=== PATIENT | female | born 1940 | race Caucasian/White ===

== ENCOUNTER 2024-05-27 12:37 | Inpatient (IN) ==
[2024-05-27] MEDS: Cefepime 1 GM IV - ED ONCE IV ONE (14:16)
[2024-05-27 14:38] LABS: ABS Basophils 0.1 10^3/uL (0.0-0.1); ABS Lymphocytes 0.7 10^3/uL (1.0-4.8); ABS Monocytes 0.9 10^3/uL (0.0-0.9); ABS Neutrophils 7.8 10^3/uL (1.5-7.6); Eosinophil % 0.4 %; Hematocrit 38.7 % (35-45); Hemoglobin 12.7 g/dL (11.5-14.3); Mean Corpuscular Hemoglobin 28.1 pg (27-33); Mean Corpuscular Hgb Conc 32.9 g/dL (31-36); Mean Corpuscular Volume 85.3 fL (80-97); Mean Platelet Volume 8.3 fL (7.5-11.2); Platelet Count 234 10^3/uL (150-450); Red Blood Count 4.54 10^6/uL (3.63-4.92); White Blood Count 9.5 10^3/uL (3.8-11.8)
[2024-05-27 14:54] LABS: Albumin 3.9 g/dL (3.2-5.2); Albumin/Globulin Ratio 1.8 (1-3); C Reactive Protein 84.55 mg/L (<8.01); Calcium 9.2 mg/dL (8.6-10.3); Creatinine, Serum 0.68 mg/dL (0.51-0.95); Globulin 2.2 g/dL (2-4); Potassium 3.5 mmol/L (3.5-5.0); Total Bilirubin 0.9 mg/dL (0.2-1.0); Total Protein 6.1 g/dL (6.4-8.9); eGFR CKD-EPI 86.4 (>60)
[2024-05-27] MEDS: Iohexol 300 (CONTRAST) 10 ML SDV IV ONE (15:50)
[2024-05-27 19:37] LABS: Hepatitis B Surface Antigen Nonreactive (Nonreactive)
[2024-05-27 19:42] LABS: Hepatitis B Core IgM Nonreactive (Nonreactive)
[2024-05-27 19:54] LABS: Hepatitis B Surface Ab Not Immune (Immune); Hepatitis C Antibody Negative (Negative)
[2024-05-27] MEDS: Vancomycin 1,500 MG in NS 0.9% 250 ml 250 ML IVPB ONE (20:16)
[2024-05-27 22:04] LABS: Urine Appearance Turbid; Urine Bacteria 1+ /HPF (Absent); Urine Bilirubin Negative (Negative); Urine Blood 1+ (Negative); Urine Color Yellow; Urine Glucose Negative (Negative); Urine Ketones 1+ (Negative); Urine Nitrite Negative (Negative); Urine Protein 1+ (>=30 mg/dL) (Negative); Urine Red Blood Cell 3+(>10/hpf) /HPF (0-Trace); Urine Specific Gravity >1.050 (1.002-1.030); Urine Squamous Epithelial Cell Present /HPF (Absent); Urine Urobilinogen Negative (Negative); Urine White Blood Cell 3+(>20/hpf) /HPF (0-Trace)
[2024-05-28] MEDS: Cholecalciferol (VIT D3) 1,000 unit TAB PO SCH (00:27)
[2024-05-28] MEDS: cefTRIAXone 1 gm/50 mL D5W 1 GM/50 ML BAG IV SCH (00:31)
[2024-05-28] MEDS ORDERED: Cefepime 1 GM in Dextrose 1 GM/50 ML BAG IV SCH (02:00)
[2024-05-28 06:21] LABS: ABS Eosinophils 0.1 10^3/uL (0.0-0.5); ABS Lymphocytes 0.7 10^3/uL (1.0-4.8); ABS Monocytes 0.7 10^3/uL (0.0-0.9); Eosinophil % 2.1 %; Hematocrit 37.6 % (35-45); Hemoglobin 12.4 g/dL (11.5-14.3); Mean Platelet Volume 7.9 fL (7.5-11.2); Nucleated Red Blood Cells % 0.1 %/100WBC (0.0-0.8); Platelet Count 215 10^3/uL (150-450); Red Blood Count 4.43 10^6/uL (3.63-4.92); Red Cell Distribution Width 17.2 % (12-17); White Blood Count 6.5 10^3/uL (3.8-11.8)
[2024-05-28 06:33] LABS: HIV 4th Generation Nonreactive (Nonreactive)
[2024-05-28 07:04] LABS: Calcium 8.3 mg/dL (8.6-10.3); Creatinine, Serum 0.69 mg/dL (0.51-0.95); Magnesium 1.8 mg/dL (1.9-2.7); Potassium 3.5 mmol/L (3.5-5.0); eGFR CKD-EPI 86.1 (>60)
[2024-05-28] MEDS ORDERED: Vancomycin per Pharmacy 1 EA NOTE FOLLOW UP PRN (11:26)
[2024-05-28] MEDS: Collagenase 250 units/gm OINT 1 tube TOPICAL SCH (16:17)
[2024-05-28] MEDS: Vancomycin 1,500 MG in NS 0.9% 250 ml 250 ML IVPB SCH (21:39)
[2024-05-29 06:07] LABS: ABS Eosinophils 0.2 10^3/uL (0.0-0.5); ABS Lymphocytes 0.8 10^3/uL (1.0-4.8); ABS Monocytes 0.7 10^3/uL (0.0-0.9); ABS Neutrophils 3.7 10^3/uL (1.5-7.6); Eosinophil % 4.4 %; Hematocrit 37.1 % (35-45); Hemoglobin 12.1 g/dL (11.5-14.3); Lymphocyte % 13.8 %; Mean Corpuscular Hemoglobin 28.2 pg (27-33); Mean Corpuscular Hgb Conc 32.6 g/dL (31-36); Mean Corpuscular Volume 86.5 fL (80-97); Mean Platelet Volume 8.4 fL (7.5-11.2); Nucleated Red Blood Cells % 0.1 %/100WBC (0.0-0.8); Platelet Count 188 10^3/uL (150-450); Red Blood Count 4.28 10^6/uL (3.63-4.92); White Blood Count 5.5 10^3/uL (3.8-11.8)
[2024-05-29 06:27] LABS: Calcium 8.1 mg/dL (8.6-10.3); Creatinine, Serum 0.61 mg/dL (0.51-0.95); Potassium 3.8 mmol/L (3.5-5.0); eGFR CKD-EPI 88.7 (>60)
[2024-05-30 06:29] LABS: ABS Basophils 0.1 10^3/uL (0.0-0.1); ABS Eosinophils 0.3 10^3/uL (0.0-0.5); ABS Lymphocytes 0.7 10^3/uL (1.0-4.8); ABS Monocytes 0.6 10^3/uL (0.0-0.9); ABS Neutrophils 3.3 10^3/uL (1.5-7.6); Eosinophil % 5.1 %; Hematocrit 38.3 % (35-45); Hemoglobin 12.5 g/dL (11.5-14.3); Lymphocyte % 14.6 %; Mean Corpuscular Hemoglobin 27.8 pg (27-33); Mean Corpuscular Hgb Conc 32.5 g/dL (31-36); Mean Corpuscular Volume 85.4 fL (80-97); Mean Platelet Volume 7.8 fL (7.5-11.2); Platelet Count 232 10^3/uL (150-450); Red Blood Count 4.49 10^6/uL (3.63-4.92); Red Cell Distribution Width 17.2 % (12-17); White Blood Count 4.9 10^3/uL (3.8-11.8)
[2024-05-30 06:49] LABS: Calcium 8.3 mg/dL (8.6-10.3); Creatinine, Serum 0.7 mg/dL (0.51-0.95); Potassium 3.9 mmol/L (3.5-5.0); eGFR CKD-EPI 85.8 (>60)
[2024-05-30] MEDS: DALVANCE 1500 MG IV ONCE (for CrCl >/= 30 or regular HD) IVPB ONE (11:12)
[2024-05-30] MEDS: DALBAVANCIN HCL (NF) 500 MG/25 ML VIAL IVPB ONE (13:29)
[2024-05-30 14:15] VITALS: BP 125/82
[2024-05-30] MEDS ORDERED: Vancomycin Trough Check NOTE FOLLOW UP ONE (19:30)
== END 2024-05-30 15:00 | disposition home or self-care (01) | DRG 540 ==
LOC: ED 12:37 → EDHOLD 12:37 → SUATTDRO 16:55 → OBSVTOIN 16:55 → MED 20:29
PROVIDERS: ADMIT Internal Medicine; ATTEND Internal Medicine